=== PATIENT | female | born 1980 | race Caucasian/White ===

== ENCOUNTER 2019-08-17 01:11 | Inpatient (IN) | payer OTHER ==
[~2019-08-17] VITALS: Ht 167.6 cm; Wt 114.3 kg
[~2019-08-17 01:11] MED LIST: FER325 PO; PREN-93 PO
[2019-08-17 01:25] VITALS: Ht 167.6 cm; Wt 114.3 kg
[2019-08-17] MEDS ORDERED: LACTATED RINGER'S 1,000 ML IV PRN (01:36)
[2019-08-17] MEDS ORDERED: LACTATED RINGER'S 1,000 ML IV SCH (01:36)
[2019-08-17] MEDS ORDERED: AMPICILLIN 2 GM/NS (PMX) 100 ML ONE (01:37)
[2019-08-17 01:39] VITALS: BP 131/72; PULSE 74; RESP 20
[2019-08-17] MEDS ORDERED: MISOPROSTOL 200 MCG TAB PR PRN ×2 (02:00→02:30)
[2019-08-17] MEDS ORDERED: METHYLERGONOVINE 0.2 MG INJ IM PRN (02:00)
[2019-08-17] MEDS ORDERED: LIDOCAINE 1% (MPF) 30 ML INJ INJ PRN (02:00)
[2019-08-17] MEDS ORDERED: IBUPROFEN 600 MG TAB PO PRN (02:00)
[2019-08-17] MEDS ORDERED: OXYTOCIN 30 UNITS/LR 500 ML IV SCH ×2 (02:00→03:00)
[2019-08-17] MEDS ORDERED: OXYTOCIN 30 UNITS/LR 500 ML IV PRN ×2 (02:00→02:30)
[2019-08-17] MEDS ORDERED: CARBOPROST 250 MCG INJ IM PRN ×2 (02:00→02:30)
[2019-08-17] MEDS ORDERED: BUTORPHANOL 2 MG INJ IV PRN ×2 (02:00)
[2019-08-17] MEDS ORDERED: AMPICILLIN 2 GM/NS (PMX) 100 ML IV ONE (02:00)
[2019-08-17] MEDS ORDERED: NA PHOSPHATE/BIPHOS 133 ML ENEMA PR PRN (02:30)
[2019-08-17] MEDS ORDERED: DIPHENHYDRAMINE 50 MG INJ IV PRN (02:30)
[2019-08-17] MEDS ORDERED: ONDANSETRON 4 MG INJ IV PRN (02:30)
[2019-08-17] MEDS ORDERED: MAGNESIUM HYDROXIDE 30ML CUP PO PRN (02:30)
[2019-08-17] MEDS ORDERED: SENNA/DOCUSATE NA (8.6MG/50MG) TAB PO PRN (02:30)
[2019-08-17] MEDS ORDERED: BENZOCAINE 20% 56 ML SPRAY TOP PRN (02:30)
[2019-08-17] MEDS ORDERED: DIPHENHYDRAMINE 25 MG CAP PO PRN (02:30)
[2019-08-17] MEDS ORDERED: ONDANSETRON 4 MG TAB PO PRN (02:30)
[2019-08-17] MEDS ORDERED: DIBUCAINE 1% 30 GM OINT TOP PRN (02:30)
[2019-08-17] MEDS ORDERED: LANOLIN HPA 1 PKT TOP PRN (02:30)
[2019-08-17] MEDS ORDERED: HYDROCODONE/APAP (5/325) TAB PO PRN ×2 (02:30)
[2019-08-17] MEDS: OXYTOCIN 30 UNITS/LR 500 ML IV SCH ×2 (03:11→06:53)
[2019-08-17 04:35] VITALS: BP 128/70; PULSE 67; RESP 18
[2019-08-17] MEDS: WITCH HAZEL/GLYCERIN PAD PR PRN (05:52)
[2019-08-17] MEDS: IBUPROFEN 600 MG TAB PO SCH ×4 (06:00→23:30)
[2019-08-17] MEDS ORDERED: AMPICILLIN 1 GM/NS (PMX) 50 ML IV SCH (06:00)
[2019-08-17 08:00] VITALS: BP 103/56; PULSE 71; RESP 20
[2019-08-17] MEDS: SENNA/DOCUSATE NA (8.6MG/50MG) TAB PO SCH ×2 (08:23→21:22)
[2019-08-17] MEDS: LACTATED RINGER'S 1,000 ML IV* SCH ×3 (10:05→18:05)
[2019-08-17 12:00] VITALS: BP 121/80; PULSE 68; RESP 18
[2019-08-17 16:00] VITALS: BP 106/55; PULSE 71; RESP 20
[2019-08-17 19:30] VITALS: BP 110/55; PULSE 80; RESP 18
[2019-08-18] VITALS (24 sets, daily range): BP systolic 102–135; BP diastolic 51–80; PULSE 58–73; RESP 13–21
[2019-08-18] MEDS: LACTATED RINGER'S 1,000 ML IV SCH (01:21)
[2019-08-18] MEDS: IBUPROFEN 600 MG TAB PO SCH ×4 (06:00→23:49)
[2019-08-18] MEDS ORDERED: FENTAnyl 50 MCG/ML VIAL ONE (08:19)
[2019-08-18] MEDS ORDERED: CEFAZOLIN 1 GM INJ ONE (08:19)
[2019-08-18] MEDS ORDERED: ALBUTEROL 0.083% (NEB) 2.5 MG/3 ML AMP HHN PRN (08:30)
[2019-08-18] MEDS ORDERED: hydrALAzine 20 MG INJ IV PRN (08:30)
[2019-08-18] MEDS ORDERED: OXYCODONE/ACETAMINOPHEN (5/325) TAB PO PRN ×2 (08:30)
[2019-08-18] MEDS ORDERED: MEPERIDINE 25 MG INJ IV PRN (08:30)
[2019-08-18] MEDS ORDERED: EPHEDrine 25 MG/5 ML SYG IV PRN (08:30)
[2019-08-18] MEDS ORDERED: IPRATROPIUM (NEB) 0.5 MG/2.5 ML AMP HHN PRN (08:30)
[2019-08-18] MEDS ORDERED: LABETALOL HCL 20MG INJ IV PRN (08:30)
[2019-08-18] MEDS ORDERED: ONDANSETRON 4 MG INJ IV PRN (08:30)
[2019-08-18] MEDS ORDERED: HYDROmorphONE 1 MG/5 ML IV SYRINGE IV PRN ×3 (08:30)
[2019-08-18] MEDS ORDERED: FENTAnyl 50 MCG/ML VIAL IV PRN ×3 (08:30)
[2019-08-18] MEDS ORDERED: DIPHENHYDRAMINE 50 MG INJ IV PRN (08:30)
[2019-08-18] MEDS ORDERED: EPHEDrine 25 MG/5 ML SYG ONE (09:00)
[2019-08-18] MEDS ORDERED: LIDOCAINE 100 MG SYRINGE ONE (09:00)
[2019-08-18] MEDS ORDERED: PROPOFOL 20 ML ONE (09:00)
[2019-08-18] MEDS: SENNA/DOCUSATE NA (8.6MG/50MG) TAB PO SCH ×2 (09:00→23:49)
[2019-08-18] MEDS: WITCH HAZEL/GLYCERIN PAD PR PRN (18:03)
[2019-08-19] MEDS: LACTATED RINGER'S 1,000 ML IV SCH ×3 (01:59→09:30)
[2019-08-19 04:13] VITALS: BP 111/66; PULSE 71; RESP 20
[2019-08-19] MEDS: IBUPROFEN 600 MG TAB PO SCH ×2 (06:05→11:32)
[2019-08-19 07:30] VITALS: BP 119/64; PULSE 65; RESP 18
[2019-08-19] MEDS ORDERED: DIPHTH/TET/ACEL PERTUSS (ADULT) 0.5 ML VIAL IM* ONE (09:00)
[2019-08-19] MEDS ORDERED: VARICELLA VACCINE LIVE/PF 1,350 UNIT/0.5 ML ML SC* ONE (09:00)
[2019-08-19] MEDS ORDERED: MEASLES,MUMPS,RUBELLA VACCINE INJ SC* ONE (09:00)
[2019-08-19] MEDS: SENNA/DOCUSATE NA (8.6MG/50MG) TAB PO SCH (09:35)
== END 2019-08-19 18:13 | disposition home or self-care (01) | DRG 798 ==
LOC: OBT 01:11 → L-D 01:13 → OBT 01:20 → L-D 01:20 → PP1 04:22
PROVIDERS: ADMIT Specialist; ATTEND Specialist
PROC: 10E0XZZ Delivery of Products of Conception, External Approach (ICD-10-PCS; principal; 2019-08-17)
PROC: 0UT70ZZ Resection of Bilateral Fallopian Tubes, Open Approach (ICD-10-PCS; 2019-08-17)
PROC: 10907ZC Drainage of Amniotic Fluid, Therapeutic from Products of Conception, Via Natural or Artificial Opening (ICD-10-PCS; 2019-08-17)
DX: O99.214 Obesity complicating childbirth (principal); Z37.0 Single live birth; Z3A.40 40 weeks gestation of pregnancy
CPT/HCPCS: 85025; 85610; 85730; 86592; 86703; 86850; 86900; 86901; 87086; 87340; 88302; 90716; G0463; J0290; J0690; J2001; J2590; J3010; J7120